=== PATIENT | male | born 1990 | race Caucasian/White ===

== ENCOUNTER 2017-06-27 15:44 | Emergency (ER) | payer OTHER ==
[~2017-06-27] VITALS: Ht 175.3 cm; Wt 80.0 kg
[~2017-06-27 15:44] MED LIST: SERO200T PO
[2017-06-27 16:05] VITALS: BP 158/77; PULSE 80; RESP 17; TEMP 98.6; O2SAT 98
--- NOTE | 2017-06-27 17:23 | PD ---
HPI Chief Complaint: Psychiatric Symptoms Time Seen by Provider: 17:13 Travel History International Travel<30 days: No Contact w/Intl Traveler<30days: No Traveled to known affect area: No History of Present Illness HPI Patient was brought in for 2 separate complaints. First complaint by the patient and only complained by the patient was that he experience shaking, involuntary spasms of his toes and feet. Patient denied any fever, rash, sore throat, cough, nausea, vomiting, diarrhea, headache, chest pain, abdominal pain , or back pain. And that is the end of his site of complaints. However the mother was most concerned that he punched a door, was quite agitated and restless, and mentally mother believes that he is on the edge and may need some adjustments of his medications. Primarily the patient is here for psychiatric screening as requested by the mother, as well as a medical screening. Allergies to adhesives sulfa and Haldol Past medical history significant for corrective lens use, asthma, hernia repair bilateral inguinal, pituitary dwarfism, OCD, ADD, ADHD, bipolar PFSH Past Medical History ADD: Yes ADHD: Yes Asthma: Yes Bipolar Disorder: Yes (mood disorder) Depression: Yes Developmental Delay: No Diminished Hearing: No Inguinal Hernia: Yes (bilat repair) Psychiatric: Yes (OCD, ADD,ADHD,BIPOLAR) Immunizations Current: Yes Past Surgical History Abdominal Surgery: Yes (HERNIA REPAIR- bilat groins) Ear Surgery: Yes (BILAT TUBES) Tympanostomy Tube: Yes (both ears, right ear repair of ruptured eardrum) Other Surgery: Yes Social History Alcohol Use: Yes (occas. mix drinks or beer) Tobacco Use: No Substance Use: No Allergies-Medications (Allergen,Severity, Reaction): Coded Allergies: Sulfa (Sulfonamide Antibiotics) (Unverified Allergy, Intermediate, Swelling, 09/20/16) haloperidol (Unverified Allergy, Mild, 09/20/16) adhesive (Unverified Adverse Reaction, Mild, 09/20/16) Reported Meds & Prescriptions Reported Meds & Active Scripts Active Reported Seroquel (Quetiapine Fumarate) 200 Mg Tab 200 Mg PO HS Review of Systems General / Constitutional: No: Fever Eyes: No: Visual changes HENT: No: Headaches Cardiovascular: No: Chest Pain or Discomfort Respiratory: No: Shortness of Breath Gastrointestinal: No: Abdominal Pain Genitourinary: No: Dysuria Musculoskeletal: Positive: Myalgias Skin: No Rash Neurologic: No: Weakness Psychiatric: Positive: Anxiety, Disorder of Thought Endocrine: No: Polydipsia Hematologic/Lymphatic: No: Easy Bruising Physical Exam Narrative GENERAL: SKIN: Warm and dry. HEAD: Atraumatic. Normocephalic. EYES: Pupils equal and round. No scleral icterus. No injection or drainage. ENT: No nasal bleeding or discharge. Mucous membranes pink and moist. NECK: Trachea midline. No JVD. CARDIOVASCULAR: Regular rate and rhythm. RESPIRATORY: No accessory muscle use. Clear to auscultation. Breath sounds equal bilaterally. GASTROINTESTINAL: Abdomen soft, non-tender, nondistended. Hepatic and splenic margins not palpable. MUSCULOSKELETAL: Extremities without clubbing, cyanosis, or edema. No obvious deformities. NEUROLOGICAL: Awake and alert. No obvious cranial nerve deficits. Motor grossly within normal limits. Five out of 5 muscle strength in the arms and legs. Normal speech. PSYCHIATRIC: Anxious mood and affect, currently denies hallucinations. Data Data Last Documented VS Vital Signs Date Time Temp Pulse Resp B/P (MAP) Pulse Ox O2 Delivery O2 Flow Rate FiO2 06/27/17 16:05 98.6 80 17 158/77 (104) 98 Orders Orders Complete Blood Count With Diff (06/27/17 16:08) Comprehensive Metabolic Panel (06/27/17 16:08) Urinalysis - C+S If Indicated (06/27/17 16:08) Psych Screen (06/27/17 16:08) Drug Screen, Random Urine (06/27/17 16:08) Chest, Single Ap (06/27/17 17:13) Creatine Kinase (Cpk) (06/27/17 17:15) Sodium Chlor 0.9% 1000 Ml Inj (Ns 1000 M (06/27/17 19:30) Lorazepam Inj (Ativan Inj) (06/27/17 19:30) ^ Hydration (06/27/17 19:33) Lorazepam Inj (Ativan Inj) (06/27/17 19:45) Labs Laboratory Tests Test 06/27/17 17:15 White Blood Count 11.1 TH/MM3 Red Blood Count 4.81 MIL/MM3 Hemoglobin 15.3 GM/DL Hematocrit 44.2 % Mean Corpuscular Volume 91.9 FL Mean Corpuscular Hemoglobin 31.9 PG Mean Corpuscular Hemoglobin Concent 34.7 % Red Cell Distribution Width 13.5 % Platelet Count 232 TH/MM3 Mean Platelet Volume 9.4 FL Neutrophils (%) (Auto) 62.1 % Lymphocytes (%) (Auto) 30.2 % Monocytes (%) (Auto) 5.8 % Eosinophils (%) (Auto) 0.7 % Basophils (%) (Auto) 1.2 % Neutrophils # (Auto) 6.9 TH/MM3 Lymphocytes # (Auto) 3.3 TH/MM3 Monocytes # (Auto) 0.6 TH/MM3 Eosinophils # (Auto) 0.1 TH/MM3 Basophils # (Auto) 0.1 TH/MM3 CBC Comment DIFF FINAL Differential Comment Urine Color YELLOW Urine Turbidity CLEAR Urine pH 6.5 Urine Specific [place] 1.031 Urine Protein 100 mg/dL Urine Glucose (UA) NEG mg/dL Urine Ketones 10 mg/dL Urine Occult Blood NEG Urine Nitrite NEG Urine Bilirubin NEG Urine Urobilinogen 4.0 MG/DL Urine Leukocyte Esterase NEG Urine RBC 6 /hpf Urine WBC 3 /hpf Urine Mucus FEW /lpf Microscopic Urinalysis Comment CULT NOT INDICATED Blood Urea Nitrogen 9 MG/DL Creatinine 0.84 MG/DL Random Glucose 98 MG/DL Total Protein 8.0 GM/DL Albumin 3.9 GM/DL Calcium Level 9.3 MG/DL Alkaline Phosphatase 50 U/L Aspartate Amino Transf (AST/SGOT) 18 U/L Alanine Aminotransferase (ALT/SGPT) 20 U/L Total Bilirubin 0.4 MG/DL Sodium Level 138 MEQ/L Potassium Level 3.6 MEQ/L Chloride Level 105 MEQ/L Carbon Dioxide Level 22.4 MEQ/L Anion Gap 11 MEQ/L Estimat Glomerular Filtration Rate 110 ML/MIN Total Creatine Kinase 65 U/L Urine Opiates Screen NEG Urine Barbiturates Screen NEG Urine Amphetamines Screen NEG Urine Benzodiazepines Screen NEG Urine Cocaine Screen NEG Urine Cannabinoids Screen POS MDM Medical Decision Making Medical Screen Exam Complete: Yes Emergency Medical Condition: Yes Medical Record Reviewed: Yes Differential Diagnosis Rhabdo versus dehydration versus electrolyte imbalance versus pneumonia versus UTI Narrative Course CBC shows no leukocytosis, no anemia no left shift and a normal platelet count Electrolytes are all within normal limits, normal kidney function, normal liver function, and nonelevated total CPK UA shows mild ketones consistent with dehydration, but without any evidence of UTI Tox screen is only positive for marijuana Chest x-ray is read by radiologist no acute intrathoracic disease. Patient is medically clear currently not suicidal or having any homicidal ideation. Not a pereira act candidate at this present time. Mother is amenable to having a voluntary psych screen and possible adjustment of medications if possible. Patient has his own private psychiatrist and he can follow-up with, and agrees to make a follow-up appointment at this present time, patient responded well to Ativan IM. In lieu of a safe discharge, the patient is being advised to be released to the mother's care and should the mother feel that he is deteriorating or may be a threat to himself she is advised to either call 911 or bring the patient back to the emergency department at which time he will be Pereira acted. Patient tolerated p.o. challenge and is agreeable to staying with his mother for tonight and understands the plan to return to the ED should he feel any further deterioration or if he starts to feel any kind of suicidal or homicidal. Both parent/mother and patient are both agreeable with this plan Diagnosis Primary Impression: Medical clearance Patient Instructions: Anxiety (ED), General Instructions Additional Instructions: Please make a follow-up appointment with your psychiatrist Dr. Brooks Disposition: 01 DISCHARGE HOME Condition: Stable Duc Sosa MD June 27, 2017 17:23
--- NOTE | 2017-06-27 17:42 | RADRPT ---
EXAM DATE: 06/27/2017 5:40 PM EDT AGE/SEX: 27 years / Male INDICATIONS: Short of breath, cough, flu like symptoms. CLINICAL DATA: This is the patient's initial encounter. Patient reports that signs and symptoms have been present for 1 day and indicates a pain score of 3/10. MEDICAL/SURGICAL HISTORY: None. None. COMPARISON: No prior [facility] exams available for comparison. FINDINGS: A single AP view of the chest demonstrates the lungs to be symmetrically aerated without e vidence of mass, infiltrate or effusion. The cardiomediastinal contours are unremarkable. Osseous s tructures are intact. CONCLUSION: No acute intrathoracic disease. Electronically signed by: Jase Richter MD 06/27/2017 5:41 PM EDT
[2017-06-27 17:43] LABS: AUTOMATED NEUTROPHIL # 6.9 TH/MM3 (1.8-7.7); BASOPHIL # 0.1 TH/MM3 (0-0.2); BASOPHIL % 1.2 % (0.0-2.0); EOSINOPHIL # 0.1 TH/MM3 (0-0.4); EOSINOPHIL % 0.7 % (0.0-4.0); HEMATOCRIT 44.2 % (39.0-51.0); HEMOGLOBIN 15.3 GM/DL (13.0-17.0); LYMPH % 30.2 % (9.0-44.0); LYMPHOCYTE # 3.3 TH/MM3 (1.0-4.8); MEAN CELL VOLUME 91.9 FL (80.0-100.0); MEAN CORPUSCULAR HEMOGLOBIN 31.9 PG (27.0-34.0); MEAN CORPUSCULAR HGB CONC 34.7 % (32.0-36.0); MEAN PLATELET VOLUME 9.4 FL (7.0-11.0); MONO % 5.8 % (0.0-8.0); MONOCYTE # 0.6 TH/MM3 (0-0.9); NEUT % 62.1 % (16.0-70.0); PLATELET COUNT 232 TH/MM3 (150-450); RED BLOOD COUNT 4.81 MIL/MM3 (4.50-5.90); RED CELL DISTRIBUTION WIDTH 13.5 % (11.6-17.2); WHITE BLOOD COUNT 11.1 TH/MM3 (4.0-11.0)
[2017-06-27 17:57] LABS: BILIRUBIN, URINE NEG (NEG); BLOOD, URINE NEG (NEG); GLUCOSE,URINE NEG (NEG); KETONE, URINE 10 mg/dL (NEG); MUCUS URINE FEW /lpf (OCC); NITRITE,URINE NEG (NEG); PH, URINE 6.5 (5.0-8.5); URINE COLOR YELLOW (YELLW/STRAW); URINE LEUKOCYTE ESTERASE NEG (NEG)
[2017-06-27 18:01] LABS: ALBUMIN 3.9 GM/DL (3.4-5.0); ALT (GPT) 20 U/L (12-78); AST (GOT) 18 U/L (15-37); BICARBONATE 22.4 MEQ/L (21.0-32.0); BLOOD UREA NITROGEN 9 MG/DL (7-18); CALCIUM 9.3 MG/DL (8.5-10.1); CHLORIDE 105 MEQ/L (98-107); CREATININE 0.84 MG/DL (0.60-1.30); GLOMERULAR FILTRATION RATE 110 ML/MIN (>89); GLUCOSE,RANDOM 98 MG/DL (74-106); SODIUM (NA) 138 MEQ/L (136-145)
[2017-06-27 18:03] LABS: ALKALINE PHOSPHATASE 50 U/L (45-117); TOTAL BILIRUBIN ADULT 0.4 MG/DL (0.2-1.0)
[2017-06-27] MEDS ORDERED: LORazepam 2 MG/ML VIAL IV PUSH ONE (19:30)
[2017-06-27] MEDS ORDERED: SODIUM CHLOR 0.9% 1000 ML INJ 1,000 ML IV ONE (19:30)
[2017-06-27] MEDS ORDERED: LORazepam 2 MG/ML VIAL IM ONE (19:45)
[2017-06-27] MEDS ORDERED: DEPA500T3 PO (20:38)
[2017-06-27] MEDS ORDERED: LITH600C PO (20:41)
[2017-06-27] MEDS ORDERED: GABA300C5 PO (20:41)
[2017-06-27] MEDS ORDERED: CLON0.1T PO (20:41)
[2017-06-27] MEDS ORDERED: GABA600T PO (20:41)
== END 2017-06-27 21:19 | disposition home or self-care (01) ==
LOC: NEPD 15:44
DX: F41.9 Anxiety disorder, unspecified (principal); F31.9 Bipolar disorder, unspecified; Z79.899 Other long term (current) drug therapy
CPT/HCPCS: 71045; 80053; 80307; 81001; 82550; 85025; 99283; J2060